=== PATIENT | female | born 1950 | race Hispanic/Latino ===

== ENCOUNTER 2020-02-05 05:58 | Day surgery (SDC) | payer OTHER ==
[2020-02-01 08:49] VITALS: BP 171/80
[2020-02-01 09:23] LABS: BASOPHILS % (AUTO) 0.4 % (0.0-5.0); HEMATOCRIT 37.1 % (36-48); MEAN CORPUSCULAR HEMOGLOBIN 28.5 pg (27.0-33.0); MEAN CORPUSCULAR HGB CONC 32.6 g/dL (32.0-36.0); MEAN CORPUSCULAR VOLUME 87.5 fL (79-99); MONOCYTES % (AUTO) 5.9 % (3.0-13.0); PLATELET COUNT (AUTO) 326 K/uL (130-400); RED BLOOD CELL COUNT(AUTO) 4.24 MIL/uL (4.00-5.50); RED CELL DISTRIBUTION WIDTH 13.2 % (11.0-15.5); WHITE BLOOD COUNT (AUTO) 14.7 K/uL (4.8-10.8)
[2020-02-01 09:25] LABS: APPEARANCE,URINE Clear (CLEAR); BILIRUBIN,URINE Negative (NEGATIVE); COLOR,URINE Yellow (YELLOW); GLUCOSE, URINE (UA) Negative (NEGATIVE); KETONES,URINE Trace mg/dL (NEGATIVE); LEUKOCYTE ESTERASE ,URINE Negative (NEGATIVE); NITRATE,URINE Negative (NEGATIVE); OCCULT BLOOD,URINE Negative (NEGATIVE); PROTEIN,URINE Trace mg/dL (NEGATIVE)
[2020-02-01 09:30] LABS: INR 0.89 (0.85-1.15); PARTIAL THROMBOPLASTIN TIME 26.4 SEC (26.3-35.5); PROTHROMBIN TIME 9.7 SEC (9.6-11.6)
[2020-02-01 09:40] LABS: BACTERIA,URINE Rare /HPF (None Seen); RBC,URINE 0-1 /HPF (0-1); SQUAMOUS EPITHELIAL CELL,UR Rare /HPF (0-2); WBC,URINE 0-1 /HPF (0-1)
[2020-02-01 09:40] LABS: CREATININE 0.9 mg/dL (0.5-1.5); POTASSIUM 4.2 mmol/L (3.5-5.1)
--- NOTE | 2020-02-02 15:55 | NUR ---
WBC FAXED AND REPORTED ABNORMAL WBC TO GARCÍA FENTON AT DR. YOUNG. SHE WILL INFORM HIM AND CALL ME BACK.
--- NOTE | 2020-02-02 16:55 | NUR ---
wbc no orders received. proceed with plANNed procedure.
[~2020-02-05] VITALS: Ht 157.5 cm; Wt 98.3 kg
[2020-02-05] VITALS (11 sets, daily range): BP systolic 132–188; BP diastolic 49–88
[~2020-02-05 05:58] MED LIST: ASCO1CAP5 PO; ASPI-556 PO; ATOR20TA65 PO; BRIM15OS OU; BRIN10DR OU; CA/D1TAB3 PO; CHOL100046 PO; LATA7.5D OU; LOSA1TAB37 PO; METF-446 PO; METO-408 PO; MULT-1367 PO; NETA2.5D OU; OMEGA3 PO; TUMERIC PO; UBID100C45 PO
[2020-02-05] MEDS ORDERED: SODIUM CHLORIDE 0.9% 1000ML 1,000 ML IV ONE (08:56)
[2020-02-05] MEDS ORDERED: IOHEXOL-350 50ML VIAL IV ONE (09:23)
[2020-02-05] MEDS ORDERED: HEPARIN SODIUM 1000UNIT/ML 10ML VIAL ONE (09:23)
[2020-02-05] MEDS ORDERED: SODIUM BICARB 50MEQ 50ML VIAL ONE (09:24)
[2020-02-05] MEDS ORDERED: MIDAZOLAM HCL 1 MG/ML 2ML VIAL ONE (09:24)
[2020-02-05] MEDS ORDERED: LIDOCAINE HCL 2% 20ML ONE (09:24)
[2020-02-05] MEDS ORDERED: MEPERIDINE-PF 25 MG/ML SYG ONE (09:24)
[2020-02-05] MEDS ORDERED: IOHEXOL 350 MG/ML 100ML INFUS..BTL IV ONE (09:24)
[2020-02-05] MEDS ORDERED: NITROGLYCERIN 2 MG/VIAL VIAL IV ONE (09:44)
[2020-02-05] MEDS ORDERED: FENTANYL CITRATE PF 50 MCG/1 ML 2ML VIAL ONE (10:00)
[2020-02-05] MEDS ORDERED: PRASUGREL HCL 10 MG TABLET ONE (10:47)
--- NOTE | 2020-02-05 14:15 | NUR ---
REPORT REPORT RECEIVED BY KEITH ALFORD. SITE TO RIGHT WRIST SOFT TO TOUCH. NO BLEEDING, OOZING NOTED TO RIGHT WRIST. NO PAIN, SOB AT THIS TIME. AT BEDSIDE.
--- NOTE | 2020-02-05 14:30 | NUR ---
DISCHARGE INSTRUCTIONS D/C INSTRUCTIONS GIVEN TO PT AND PTS BY KEITH ALFORD. NEW PRESCRIPTIONS CALLED IN BY HIM WELL TO PTS PHARMACY. BOTH VERBALIZED UNDERSTANDING.
--- NOTE | 2020-02-05 15:45 | NUR ---
D/C PT D/C. NO SWELLING, BLEEDING TO RIGHT WRIST. DRSG IN PLACE AND INTACT
== END 2020-02-05 15:45 | disposition home or self-care (01) ==
LOC: DAH 05:58
PROVIDERS: ATTEND Internal Medicine Cardiovascular Disease
DX: I47.1 Supraventricular tachycardia (principal); I25.119 Atherosclerotic heart disease of native coronary artery with unspecified angina pectoris; I10 Essential (primary) hypertension; E78.5 Hyperlipidemia, unspecified; E11.9 Type 2 diabetes mellitus without complications; G47.33 Obstructive sleep apnea (adult) (pediatric); Z90.49 Acquired absence of other specified parts of digestive tract; Z79.899 Other long term (current) drug therapy; Z90.710 Acquired absence of both cervix and uterus; Z98.890 Other specified postprocedural states; Z79.01 Long term (current) use of anticoagulants; Z82.49 Family history of ischemic heart disease and other diseases of the circulatory system; Z79.84 Long term (current) use of oral hypoglycemic drugs; Z87.891 Personal history of nicotine dependence
CPT/HCPCS: 36415; 71045; 80048; 81001; 82948 ×2; 85025; 85610; 85730; 93005; 93458; A4215; A4216; A4221; A4222; A4223 ×3; A4606; A4663; C1769 ×2; C1874; C1887; C1894; C9600; J1644 ×2; J2175; J2250; J3010; J3490 ×3; J7030; Q9965; Q9967 ×2; 99156; 99157

== ENCOUNTER → 2022-12-08 | Outpatient (CLI) | payer MEDICARE ==
[~2022-12-08] MED LIST changes: +APIX5TAB PO; -ATOR20TA65 PO; -CA/D1TAB3 PO; -CHOL100046 PO; +EZET10TA48 PO; +FURO20TA4 PO; +KETO5DRO82 OS; -METO-408 PO; -OMEGA3 PO; +ROSU20TA31 PO; +VERA240T95 PO; +VITAD50000 PO
[2022-12-08 12:24] LABS: BASOPHILS % (AUTO) 0.4 % (0.0-5.0); EOSINOPHILS % (AUTO) 1.1 % (0.0-8.0); HEMATOCRIT 33.5 % (36-48); LYMPHOCYTES % (AUTO) 22.8 % (21.0-51.0); MEAN CORPUSCULAR HEMOGLOBIN 26.1 pg (27.0-33.0); NEUTROPHILS % (AUTO) 69.1 % (40.0-77.0); PLATELET COUNT (AUTO) 344 K/uL (130-400); RED BLOOD CELL COUNT(AUTO) 3.99 MIL/uL (4.00-5.50); RED CELL DISTRIBUTION WIDTH 15.3 % (11.0-15.5); WHITE BLOOD COUNT (AUTO) 14.1 K/uL (4.8-10.8)
[2022-12-08 12:48] LABS: ALBUMIN 3.4 g/dL (3.5-5.0); CREATININE 1.1 mg/dL (0.5-1.5); POTASSIUM 4.3 mmol/L (3.5-5.1); TOTAL PROTEIN, SERUM 7.3 g/dL (6.0-8.3)
== END | disposition home or self-care (01) ==
LOC: LAB 10:01
PROVIDERS: ATTEND Internal Medicine Cardiovascular Disease
DX: I25.10 Atherosclerotic heart disease of native coronary artery without angina pectoris (principal); I73.9 Peripheral vascular disease, unspecified
CPT/HCPCS: 36415; 80053; 80061; 85025

== ENCOUNTER → 2023-03-11 | Outpatient (CLI) | payer MEDICARE ==
[~2023-03-11] MED LIST changes: -ROSU20TA31 PO; +ROSU20TA73 PO
[2023-03-11 12:17] LABS: BASOPHILS % (AUTO) 0.5 % (0.0-5.0); EOSINOPHILS % (AUTO) 1.5 % (0.0-8.0); HEMATOCRIT 35.5 % (36-48); LYMPHOCYTES % (AUTO) 27.3 % (21.0-51.0); MEAN CORPUSCULAR HEMOGLOBIN 25.5 pg (27.0-33.0); MEAN CORPUSCULAR HGB CONC 30.4 g/dL (32.0-36.0); MEAN CORPUSCULAR VOLUME 83.9 fL (79-99); MONOCYTES % (AUTO) 6.6 % (3.0-13.0); NEUTROPHILS % (AUTO) 63.6 % (40.0-77.0); PLATELET COUNT (AUTO) 370 K/uL (130-400); RED BLOOD CELL COUNT(AUTO) 4.23 MIL/uL (4.00-5.50); RED CELL DISTRIBUTION WIDTH 14.8 % (11.0-15.5); WHITE BLOOD COUNT (AUTO) 14.2 K/uL (4.8-10.8)
[2023-03-11 12:32] LABS: % IRON SATURATION 9.6 % (22-44)
== END | disposition home or self-care (01) ==
LOC: LAB 08:15
PROVIDERS: ATTEND Internal Medicine Cardiovascular Disease
DX: D64.9 Anemia, unspecified (principal); I48.0 Paroxysmal atrial fibrillation; D68.59 Other primary thrombophilia
CPT/HCPCS: 36415; 82728; 83540; 83550; 85025; 85045

== ENCOUNTER 2023-06-23 01:11 | Emergency (ER) | payer MEDICARE ==
[~2023-06-23] VITALS: Ht 149.9 cm; Wt 96.6 kg
[2023-06-23] MEDS ORDERED: MORPHINE 2 MG SYG IVP ONE ×2 (02:30→04:00)
[2023-06-23 02:56] LABS: BASOPHILS # (AUTO) 0.07 K/uL (0.00-0.20); BASOPHILS % (AUTO) 0.4 % (0.0-5.0); EOSINOPHILS # (AUTO) 0.39 K/uL (0.00-0.70); EOSINOPHILS % (AUTO) 2.5 % (0.0-8.0); HEMATOCRIT 37.1 % (36-48); IMMATURE GRANULOCYTE ABSOLUTE 0.09 K/uL (0-1); LYMPHOCYTES # (AUTO) 2.3 K/uL (1.0-4.8); LYMPHOCYTES % (AUTO) 14.8 % (21.0-51.0); MEAN CORPUSCULAR HEMOGLOBIN 26.8 pg (27.0-33.0); MEAN CORPUSCULAR HGB CONC 31.5 g/dL (32.0-36.0); MEAN CORPUSCULAR VOLUME 85.1 fL (79-99); MONOCYTES # (AUTO) 1.1 K/uL (0.1-1.0); MONOCYTES % (AUTO) 6.8 % (3.0-13.0); NEUTROPHILS # (AUTO) 11.7 K/uL (1.8-7.7); NEUTROPHILS % (AUTO) 74.9 % (40.0-77.0); PLATELET COUNT (AUTO) 305 K/uL (130-400); RED BLOOD CELL COUNT(AUTO) 4.36 MIL/uL (4.00-5.50); RED CELL DISTRIBUTION WIDTH 14.3 % (11.0-15.5); WHITE BLOOD COUNT (AUTO) 15.7 K/uL (4.8-10.8)
[2023-06-23 03:05] LABS: CREATININE 1.3 mg/dL (0.5-1.5); POTASSIUM 4.1 mmol/L (3.5-5.1)
[2023-06-23 03:09] LABS: ALBUMIN 3.3 g/dL (3.5-5.0); BILIRUBIN,TOTAL 0.2 mg/dL (0.2-1.0); TOTAL PROTEIN, SERUM 7.3 g/dL (6.0-8.3); URIC ACID 5.4 mg/dL (2.6-7.2)
[2023-06-23] MEDS ORDERED: IBUP-1493 PO (03:24)
[2023-06-23 04:56] VITALS: BP 144/65; PULSE 76; RESP 18; O2SAT 98
== END 2023-06-23 05:00 | disposition home or self-care (01) ==
LOC: EDH 01:11
DX: M13.832 Other specified arthritis, left wrist (principal); M13.822 Other specified arthritis, left elbow; M25.512 Pain in left shoulder; M71.9 Bursopathy, unspecified; E11.9 Type 2 diabetes mellitus without complications; E78.00 Pure hypercholesterolemia, unspecified; I10 Essential (primary) hypertension; I48.91 Unspecified atrial fibrillation; Z79.01 Long term (current) use of anticoagulants; Z79.82 Long term (current) use of aspirin; Z79.84 Long term (current) use of oral hypoglycemic drugs; Z79.899 Other long term (current) drug therapy; Z90.49 Acquired absence of other specified parts of digestive tract
CPT/HCPCS: 99284; 96374; 84550; 80053; 85025; 85651; 36415; 73100; 73080; 73090; 73060; 73020; 96376; J2270 ×2

== ENCOUNTER → 2023-07-02 | Outpatient (CLI) | payer MEDICARE ==
[~2023-07-02] MED LIST changes: +IBUP-1493 PO
[2023-07-02 12:28] LABS: HEMATOCRIT 35.2 % (36-48)
[2023-07-02 13:00] LABS: % IRON SATURATION 10.9 % (22-44)
== END | disposition home or self-care (01) ==
LOC: LAB 08:35
PROVIDERS: ATTEND Internal Medicine Cardiovascular Disease
DX: I48.0 Paroxysmal atrial fibrillation (principal); D64.9 Anemia, unspecified; E61.1 Iron deficiency; D68.59 Other primary thrombophilia; R53.83 Other fatigue; Z79.899 Other long term (current) drug therapy
CPT/HCPCS: 36415; 82607; 82747; 83540; 83550; 85014; 85018

== ENCOUNTER → 2023-11-15 | Outpatient (CLI) | payer MEDICARE ==
[2023-11-15 12:23] LABS: BASOPHILS # (AUTO) 0.05 K/uL (0.00-0.20); BASOPHILS % (AUTO) 0.4 % (0.0-5.0); EOSINOPHILS # (AUTO) 0.26 K/uL (0.00-0.70); EOSINOPHILS % (AUTO) 1.9 % (0.0-8.0); HEMATOCRIT 35.1 % (36-48); IMMATURE GRANULOCYTE ABSOLUTE 0.08 K/uL (0-1); LYMPHOCYTES # (AUTO) 2.9 K/uL (1.0-4.8); LYMPHOCYTES % (AUTO) 21.3 % (21.0-51.0); MEAN CORPUSCULAR HGB CONC 31.3 g/dL (32.0-36.0); MEAN CORPUSCULAR VOLUME 86.2 fL (79-99); MONOCYTES # (AUTO) 0.9 K/uL (0.1-1.0); MONOCYTES % (AUTO) 6.6 % (3.0-13.0); NEUTROPHILS # (AUTO) 9.4 K/uL (1.8-7.7); NEUTROPHILS % (AUTO) 69.2 % (40.0-77.0); PLATELET COUNT (AUTO) 311 K/uL (130-400); RED BLOOD CELL COUNT(AUTO) 4.07 MIL/uL (4.00-5.50); RED CELL DISTRIBUTION WIDTH 14.9 % (11.0-15.5); WHITE BLOOD COUNT (AUTO) 13.5 K/uL (4.8-10.8)
== END | disposition home or self-care (01) ==
LOC: LAB 09:03
PROVIDERS: ATTEND Internal Medicine Cardiovascular Disease
DX: D64.9 Anemia, unspecified (principal)
CPT/HCPCS: 36415; 85025

== ENCOUNTER → 2024-06-20 | Outpatient (CLI) | payer MEDICARE ==
[~2024-06-20] MED LIST changes: -ROSU20TA73 PO; +ROSU20TA98 PO
[2024-06-20 12:11] LABS: BASOPHILS # (AUTO) 0.04 K/uL (0.00-0.20); BASOPHILS % (AUTO) 0.3 % (0.0-5.0); EOSINOPHILS # (AUTO) 0.19 K/uL (0.00-0.70); EOSINOPHILS % (AUTO) 1.4 % (0.0-8.0); HEMATOCRIT 35.2 % (36-48); IMMATURE GRANULOCYTE ABSOLUTE 0.08 K/uL (0-1); LYMPHOCYTES # (AUTO) 3.2 K/uL (1.0-4.8); MEAN CORPUSCULAR HEMOGLOBIN 26.6 pg (27.0-33.0); MEAN CORPUSCULAR HGB CONC 31.3 g/dL (32.0-36.0); MEAN CORPUSCULAR VOLUME 85.2 fL (79-99); MONOCYTES # (AUTO) 0.9 K/uL (0.1-1.0); MONOCYTES % (AUTO) 6.6 % (3.0-13.0); NEUTROPHILS # (AUTO) 8.8 K/uL (1.8-7.7); NEUTROPHILS % (AUTO) 67.1 % (40.0-77.0); PLATELET COUNT (AUTO) 321 K/uL (130-400); RED BLOOD CELL COUNT(AUTO) 4.13 MIL/uL (4.00-5.50); RED CELL DISTRIBUTION WIDTH 14.8 % (11.0-15.5); WHITE BLOOD COUNT (AUTO) 13.2 K/uL (4.8-10.8)
[2024-06-20 12:25] LABS: ALBUMIN 3.2 g/dL (3.5-5.0); BILIRUBIN,TOTAL 0.3 mg/dL (0.2-1.0); CREATININE 1.1 mg/dL (0.5-1.0); MAGNESIUM 1.3 mg/dL (1.80-2.40); POTASSIUM 4.3 mmol/L (3.5-5.1)
== END | disposition home or self-care (01) ==
LOC: LAB 08:39
PROVIDERS: ATTEND Internal Medicine Cardiovascular Disease
DX: D64.9 Anemia, unspecified (principal); D68.59 Other primary thrombophilia; I10 Essential (primary) hypertension; E11.9 Type 2 diabetes mellitus without complications; Z79.899 Other long term (current) drug therapy
CPT/HCPCS: 36415; 80053; 80061; 83735; 85025

== ENCOUNTER → 2024-08-22 | Outpatient (CLI) | payer MEDICARE | END | disposition home or self-care (01) | LOC: SHCH 10:20 | PROVIDERS: ATTEND Internal Medicine Cardiovascular Disease | DX: R06.00 Dyspnea, unspecified (principal) | CPT/HCPCS: 93306 ==

== ENCOUNTER → 2024-08-31 | Outpatient (CLI) | payer MEDICARE ==
[2024-08-31] MEDS: REGADENOSON 0.4 MG/5 ML PF SYG IVP ONE (13:55)
== END | disposition home or self-care (01) ==
LOC: SHCH 08:36
PROVIDERS: ATTEND Internal Medicine Cardiovascular Disease
DX: I49.3 Ventricular premature depolarization (principal); R06.00 Dyspnea, unspecified; Z79.899 Other long term (current) drug therapy
CPT/HCPCS: 78452; 93017; J2785; A9500 ×2

== ENCOUNTER → 2024-09-07 | Outpatient (CLI) | payer MEDICARE | END | disposition home or self-care (01) | LOC: LAB 08:39 | PROVIDERS: ATTEND Internal Medicine Cardiovascular Disease | DX: R06.00 Dyspnea, unspecified (principal) | CPT/HCPCS: 36415; 83880 ==

== ENCOUNTER → 2024-09-29 | Outpatient (CLI) | payer MEDICARE ==
[~2024-09-29] VITALS: Ht 152.4 cm; Wt 95.8 kg
[~2024-09-29] MED LIST changes: +FOLIC ACID PO; +HYDR12.54 PO; +LOSA50TA64 PO; +POLY IRON PO; +POLY15DR67 OU; +VIT B12 PO
[2024-09-29 11:24] LABS: BASOPHILS # (AUTO) 0.07 K/uL (0.00-0.20); BASOPHILS % (AUTO) 0.4 % (0.0-5.0); EOSINOPHILS # (AUTO) 0.15 K/uL (0.00-0.70); EOSINOPHILS % (AUTO) 0.9 % (0.0-8.0); HEMATOCRIT 37.5 % (36-48); IMMATURE GRANULOCYTE ABSOLUTE 0.12 K/uL (0-1); LYMPHOCYTES # (AUTO) 2.7 K/uL (1.0-4.8); LYMPHOCYTES % (AUTO) 16.5 % (21.0-51.0); MEAN CORPUSCULAR HEMOGLOBIN 26.9 pg (27.0-33.0); MEAN CORPUSCULAR HGB CONC 31.5 g/dL (32.0-36.0); MEAN CORPUSCULAR VOLUME 85.4 fL (79-99); MONOCYTES # (AUTO) 0.9 K/uL (0.1-1.0); MONOCYTES % (AUTO) 5.3 % (3.0-13.0); NEUTROPHILS # (AUTO) 12.4 K/uL (1.8-7.7); NEUTROPHILS % (AUTO) 76.2 % (40.0-77.0); PLATELET COUNT (AUTO) 354 K/uL (130-400); RED BLOOD CELL COUNT(AUTO) 4.39 MIL/uL (4.00-5.50); RED CELL DISTRIBUTION WIDTH 13.8 % (11.0-15.5); WHITE BLOOD COUNT (AUTO) 16.3 K/uL (4.8-10.8)
[2024-09-29 11:25] VITALS: BP 184/65; PULSE 73; RESP 18; TEMP 97.7
--- NOTE | 2024-09-29 11:36 | EKG ---
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
[2024-09-29 11:37] LABS: INR 0.96 (0.85-1.15); PROTHROMBIN TIME 10.8 SEC (9.6-11.6)
[2024-09-29 11:39] LABS: PARTIAL THROMBOPLASTIN TIME 31.5 SEC (26.3-35.5)
[2024-09-29 11:45] LABS: CREATININE 1.2 mg/dL (0.5-1.0); POTASSIUM 4.7 mmol/L (3.5-5.1)
[2024-09-29 11:57] LABS: B-TYPE NATRIURETIC PEPTIDE 49 pg/mL (0-100)
[2024-09-29 13:07] LABS: APPEARANCE,URINE CLEAR (CLEAR); BILIRUBIN,URINE NEGATIVE (NEGATIVE); COLOR,URINE LIGHT-YELLOW (YELLOW); GLUCOSE, URINE (UA) NEGATIVE (NEGATIVE); KETONES,URINE NEGATIVE (NEGATIVE); LEUKOCYTE ESTERASE ,URINE NEGATIVE Leu/uL (NEGATIVE); NITRATE,URINE NEGATIVE (NEGATIVE); PH,URINE 5.5 (5.0-8.0); PROTEIN,URINE NEGATIVE (NEGATIVE); UROBILINOGEN,URINE 0.2 mg/dL (0.2-1.0)
[2024-09-29 13:18] LABS: ADD UA MICROSCOPIC YES
--- NOTE | 2024-09-29 13:23 | HMCIMG ---
Exam Type: CHEST 1VW Clinical Information: PREOP Comparison: None Findings: The lungs are clear of infiltrates. The heart is normal in size. The bony and soft tissue structures of the chest are unremarkable. Impression: Clear lungs.
[2024-09-29 13:27] LABS: SQUAMOUS EPITHELIAL CELL,UR RARE /HPF (0-2); WBC,URINE 0-1 /HPF (0-1)
== END ==
LOC: DAH 10:56 → EDSTATUS 11:00
PROVIDERS: ATTEND Internal Medicine Cardiovascular Disease
DX: Z01.818 Encounter for other preprocedural examination (principal); R94.39 Abnormal result of other cardiovascular function study; I25.10 Atherosclerotic heart disease of native coronary artery without angina pectoris; I48.0 Paroxysmal atrial fibrillation
CPT/HCPCS: 36415; 71045; 80048; 81001; 83880; 85025; 85610; 85730; 93005

== ENCOUNTER 2024-10-18 05:46 | Day surgery (SDC) | payer MEDICARE ==
--- NOTE | 2024-10-16 14:10 | EKG ---
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
[2024-10-16 14:14] VITALS: BP 171/94; PULSE 68; RESP 18; TEMP 98.1
[2024-10-16 14:23] LABS: BASOPHILS # (AUTO) 0.05 K/uL (0.00-0.20); BASOPHILS % (AUTO) 0.3 % (0.0-5.0); EOSINOPHILS # (AUTO) 0.04 K/uL (0.00-0.70); EOSINOPHILS % (AUTO) 0.3 % (0.0-8.0); IMMATURE GRANULOCYTE ABSOLUTE 0.09 K/uL (0-1); LYMPHOCYTES # (AUTO) 2.2 K/uL (1.0-4.8); LYMPHOCYTES % (AUTO) 14.9 % (21.0-51.0); MEAN CORPUSCULAR HEMOGLOBIN 27.1 pg (27.0-33.0); MEAN CORPUSCULAR HGB CONC 31.4 g/dL (32.0-36.0); MEAN CORPUSCULAR VOLUME 86.4 fL (79-99); MONOCYTES # (AUTO) 0.8 K/uL (0.1-1.0); MONOCYTES % (AUTO) 5.6 % (3.0-13.0); NEUTROPHILS # (AUTO) 11.3 K/uL (1.8-7.7); NEUTROPHILS % (AUTO) 78.3 % (40.0-77.0); PLATELET COUNT (AUTO) 326 K/uL (130-400); RED BLOOD CELL COUNT(AUTO) 4.28 MIL/uL (4.00-5.50); RED CELL DISTRIBUTION WIDTH 14.6 % (11.0-15.5); WHITE BLOOD COUNT (AUTO) 14.5 K/uL (4.8-10.8)
[2024-10-16 14:35] LABS: INR 0.97 (0.85-1.15); PROTHROMBIN TIME 10.3 SEC (9.6-11.6)
[2024-10-16 14:36] LABS: PARTIAL THROMBOPLASTIN TIME 27.4 SEC (26.3-35.5)
[2024-10-16 15:10] LABS: B-TYPE NATRIURETIC PEPTIDE 50 pg/mL (0-100); CREATININE 1.2 mg/dL (0.5-1.0); POTASSIUM 5.3 mmol/L (3.5-5.1)
[2024-10-16 15:43] LABS: APPEARANCE,URINE CLEAR (CLEAR); BILIRUBIN,URINE NEGATIVE (NEGATIVE); COLOR,URINE LIGHT-YELLOW (YELLOW); GLUCOSE, URINE (UA) NEGATIVE (NEGATIVE); KETONES,URINE NEGATIVE (NEGATIVE); LEUKOCYTE ESTERASE ,URINE NEGATIVE Leu/uL (NEGATIVE); NITRATE,URINE NEGATIVE (NEGATIVE); OCCULT BLOOD,URINE NEGATIVE (NEGATIVE); PH,URINE 5.5 (5.0-8.0); PROTEIN,URINE NEGATIVE (NEGATIVE); UROBILINOGEN,URINE 0.2 mg/dL (0.2-1.0)
[2024-10-16 15:49] LABS: ADD UA MICROSCOPIC NO
--- NOTE | 2024-10-16 16:03 | HMCIMG ---
CHEST 1VW HISTORY: Preop COMPARISON: 09/29/2024 FINDINGS: A frontal projection of the chest was obtained. No acute pulmonary infiltrates is seen. The heart is borderline enlarged. Degenerative changes are seen. Aortic calcifications are seen. Aortic calcifications are seen. IMPRESSION: 1. No acute pulmonary infiltrate is seen.
--- NOTE | 2024-10-17 16:59 | NUR ---
RE:LABS REPORTED WBC 14.5 TO DORCAS DODSON. PATIENT BEING SEEN BY DR RAMACHANDRAN FOR ELEVATED WBC'S. PER MATIAS DODSON GIVEN BY DR DOMINGUEZ TO PROCEED. NO NEW ORDERS.
[~2024-10-18] VITALS: Ht 152.4 cm; Wt 95.5 kg
[2024-10-18] VITALS (8 sets, daily range): BP systolic 108–184; BP diastolic 44–64; PULSE 58–74; RESP 15–17; TEMP 97–97.3
[~2024-10-18 05:46] MED LIST changes: +AEC81 PO; -ASCO1CAP5 PO; -ASPI-556 PO; +ERGO500093 PO; +FOLI1 PO; -FOLIC ACID PO; -FURO20TA4 PO; -IBUP-1493 PO; +KETO5DRO40 OS; -KETO5DRO82 OS; -LOSA1TAB37 PO; +METF-444 PO; -MULT-1367 PO; +NITR0.4T50 SL; -POLY15DR67 OU; -TUMERIC PO; -UBID100C45 PO; -VITAD50000 PO
[2024-10-18] MEDS: 0.9%NACL 1000ML 1,000 ML IV SCH (06:54)
[2024-10-18] MEDS ORDERED: SODIUM BICARB 50MEQ 50ML VIAL 50 ML ONE (07:14)
[2024-10-18] MEDS ORDERED: LIDOCAINE HCL 400MG/20ML VIAL ONE (07:14)
[2024-10-18] MEDS ORDERED: NITROGLYCERIN 50MG VIAL ONE (07:15)
[2024-10-18] MEDS ORDERED: HEParin 10,000 UNIT/10ML (1,000 UNIT/ML) VIAL ONE (07:15)
[2024-10-18] MEDS ORDERED: HEParin-NS 1,000 UNIT/500 ML 1,000 ML IV ONE (07:15)
[2024-10-18] MEDS ORDERED: niCARDIpine 25MG INJ IV ONE (07:15)
[2024-10-18] MEDS ORDERED: IOHEXOL 350 MG/ML 100ML INFUS..BTL IV ONE (07:15)
[2024-10-18] MEDS ORDERED: IOHEXOL-350 50ML VIAL IV ONE (07:15)
[2024-10-18] MEDS ORDERED: FENTanyl CITRate PF 50 MCG/1 ML 2ML VIAL ONE (07:31)
[2024-10-18] MEDS ORDERED: MIDAZOLAM HCL 1 MG/ML 2ML VIAL ONE (07:32)
[2024-10-18] MEDS ORDERED: 0.9% NACL 500ML IV.SOLN 500 ML IV SCH (09:00)
--- NOTE | 2024-10-18 09:01 | PRN ---
Diagnostic Coronary Angiogram From Radial Approach, followed by Loop Recorder Extraction Indication: Angina, Abnormal Stress, Battery Exhaustion Technique: The patient was brought to the odd job laborer in a fasting state and sterile preparation was made in usual fashion. The patient had been explained risks and benefits of the procedure and accepted prior to this procedure. Patient was sedated with 1 mg Versed and 50 mcg fentanyl. Under local anesthesia with 1% lidocaine the right radial artery was entered percutaneously and a 5/6 [place] Terumo radial sheath was advanced into the vessel. A cocktail of 5000 units aqueous heparin, 200 mcg Cardene and 200 mcg nitroglycerin was administered via radial arterial injection. A 6 [place] TIGG catheter was advanced to the aortic root over a guidewire and the right coronary was cannulated for selective coronary arteriograms, then the left coronary was cannulated for selective left coronary arteriograms. An exchange was made for a 6 [place] pigtail using a guidewire and the left ventricle was cannulated. Left ventricular cineangiography was performed in ROY projection and then a pullback recording was obtained. The catheter was removed over a guidewire. At the conclusion of the procedure arterial hemostasis was obtained by use of a Terumo radial band with excellent hemostasis and no complications.. The patient was transferred from the odd job laborer in stable condition. Sterile prep had been made for loop recorder extraction and after angiography was completed we administered subcuticular and subcutaneous lidocaine 10 mL 1% and made a vertical incision over the medial end of the loop recorder. The loop recorder was extracted and a three 0 Vicryl subcutaneous closure was made in single layer, then a two 0 Vicryl subcuticular closure was made. No complications occurred. Results: A. Hemodynamics: LVEDP was 21 before angiography and 18 after. LV systolic pressure was 160 with aortic root pressure 150/53, mean 93. There was no true gradient; there was catheter with on pullback. B. Ventriculography: Left ventricular cineangiography induced ventricular tachycardia but wall motion was symmetric and ejection fraction is clearly high. No mitral regurgitation noted. C. Coronary Arteriography: This is a right-dominant system and the right coronary supplies the posterior descending and posterolateral branch. No obstructive right coronary disease detected. Circumflex supplies to obtuse marginals and a terminal branch and it is free of disease. Left anterior descending is notable for a mid LAD stent which is widely patent with no progression of disease otherwise. Already D. LOOP RECORDER EXTRACTION EMERGENT: Uncomplicated loop recorder extraction, 1.5 cm incision closed as above. Conclusions: No current fixed obstructive coronary disease noted, elevated LVEDP noted, normal ventricular function. Loop recorder extraction uncomplicated. JIM DOMINGUEZ MD Oct 18, 2024 09:01
--- NOTE | 2024-10-18 11:15 | NUR ---
TR BAND REMOVED AT THIS TIME PT TOLERATED WELL VSS NAD RIGHT RADIAL SITE ASYMPTOMATIC.
== END 2024-10-18 11:40 | disposition home or self-care (01) ==
LOC: DAH 05:46
PROVIDERS: ATTEND Internal Medicine Cardiovascular Disease
DX: R94.39 Abnormal result of other cardiovascular function study (principal); I25.10 Atherosclerotic heart disease of native coronary artery without angina pectoris; Z45.09 Encounter for adjustment and management of other cardiac device; J40 Bronchitis, not specified as acute or chronic; I48.0 Paroxysmal atrial fibrillation; E66.01 Morbid (severe) obesity due to excess calories; R06.09 Other forms of dyspnea; I10 Essential (primary) hypertension; E78.5 Hyperlipidemia, unspecified; E11.9 Type 2 diabetes mellitus without complications; G47.33 Obstructive sleep apnea (adult) (pediatric); Z99.89 Dependence on other enabling machines and devices; Z90.710 Acquired absence of both cervix and uterus; Z90.49 Acquired absence of other specified parts of digestive tract; Z68.41 Body mass index [BMI] 40.0-44.9, adult; Z98.890 Other specified postprocedural states; Z79.01 Long term (current) use of anticoagulants; Z79.82 Long term (current) use of aspirin; Z79.899 Other long term (current) drug therapy
CPT/HCPCS: 80048; 83880; 85025; 85610; 85730; 81003; 36415; 71045; 93005; 93458; 33286; 82948; C1769; C1894; J3010; J3490 ×4; J7030; J1644 ×2; J2250; Q9967 ×2; A4215; A6402; A4335; A4222; A4221; A4663; A4216; A6206; A4606; Q9965; A4223 ×3; 96360; 96361; 99156; 99157

== ENCOUNTER → 2024-11-28 | Outpatient (CLI) | payer MEDICARE ==
[2024-11-28 12:23] LABS: MAGNESIUM 1.3 mg/dL (1.80-2.40); POTASSIUM 4.1 mmol/L (3.5-5.1)
== END | disposition home or self-care (01) ==
LOC: LAB 08:41
PROVIDERS: ATTEND Internal Medicine Cardiovascular Disease
DX: I11.0 Hypertensive heart disease with heart failure (principal); I50.32 Chronic diastolic (congestive) heart failure; I48.0 Paroxysmal atrial fibrillation; E87.5 Hyperkalemia; R53.83 Other fatigue; Z79.899 Other long term (current) drug therapy
CPT/HCPCS: 36415; 80048; 80061; 82306; 83735